=== PATIENT | female | born 1940 | race Caucasian/White ===

== ENCOUNTER 2020-07-03 07:54 | Outpatient (CLI) | payer MEDICARE, SELFPAY | END 2020-07-03 07:55 | disposition home or self-care (01) | LOC: ANHAUDIO 07:59 | DX: R42 Dizziness and giddiness (principal) | CPT/HCPCS: 92537; 92540; 92546; 92557; 92567 ==

== ENCOUNTER 2023-04-23 07:18 | Outpatient (CLI) | payer MEDICARE, SELFPAY ==
--- NOTE | ~2023-04-23 | CT_ITS ---
EXAMINATION: CTA abdomen DATE: 04/23/2023 08:10 INDICATION: Essential hypertension TECHNIQUE: Computed tomographic angiography (CTA) of the abdomen was performed with 100 mL Omnipaque- 350 intravenous contrast. Maximum intensity projection 3D-reconstructions of the aorta and other charles santo were constructed by the technologist on a separate workstation. The dose-length product (DLP) wa s 378.84 mGy-cm. Automated exposure control and iterative reconstruction technique were employed. COMPARISON: None. FINDINGS: The visualized lung bases are clear. The heart size is normal. The liver, spleen, pancreas, gallbladder, and adrenal glands are normal. The left kidney is unremarkable. There is a 10 mm cyst o f the right kidney upper pole. There are no pathologically enlarged abdominal lymph nodes. No free in traperitoneal gas or evidence of bowel obstruction. There are changes of fusion procedure at L4-5. Th ere is severe lumbar and lower thoracic spondylosis. A small fat-containing umbilical hernia is noted . No aneurysm or dissection of the aorta. There is calcified atherosclerosis at the origins of the kim ac axis and superior mesenteric artery without hemodynamically significant stenosis. The inferior mes enteric artery is unremarkable at its origin. There are single renal arteries. There is calcified ath erosclerosis with mild to moderate stenosis at the origin of the right renal artery. The left renal a rtery is normal at its origin. IMPRESSION: 1. Calcified atherosclerosis with mild to moderate stenosis at the origin of the right renal artery. Reviewed, dictated and finalized at location B. IMPRESSION: 1. Calcified atherosclerosis with mild to moderate stenosis at the origin of th e right renal artery.
[2023-04-23 07:55] LABS: Estimated Glomerular Filt Rate > 60
== END 2023-04-23 07:19 | disposition home or self-care (01) ==
PROVIDERS: PCP Internal Medicine; Visit Provider Internal Medicine Nephrology
DX: I10 Essential (primary) hypertension (principal); I73.9 Peripheral vascular disease, unspecified
CPT/HCPCS: 74175; Q9967

== ENCOUNTER 2025-05-30 12:30 | Outpatient (RCR) | payer MEDICARE, SELFPAY ==
--- NOTE | 2025-03-27 12:09 | PTOPEVAL1 ---
Assessment and note entered by Maya Snow, PT Evaluation Information Assessment Status Evaluation Diagnosis M25.511, M25.512 ICD-10 Condition Codes (PT) Pain in Thoracic Spine M54.6,Pain in right shoulder M25.511,Pain in left shoulder M25.512, Weakness R53.1 Onset years ago Subjective Information Pt reports both shoulders are gone, unable to raise arms up to the kitchen shelves because of pain and stiffness. The last 6 months, received some help at home for household tasks due to severely limited arm movement. Pt also states she notice more hunching/leaning forward when walking and wants to be able to get better posture . Reported Pain Level Pain Score 10: Self Report Assessment PT Clinical Summary Pt presents to therapy with c/o bilateral shoulder pain and severe limitation of functional ROM bilaterally. X-Rays last 03/08/2025 showed rotator cuff tear arthropathy with the proximal migration of the humeral heads at least a centimeter and a half, erosion through the acromion. Pt demos significant loss of bilateral shoulder ROM, weakness, instability and reports of pain with active movement. She also demos postural impairments with increased kyphosis and bilateral scapular protraction, shoulder subluxation. She will benefit from skilled PT for education to avoid further progression of shoulder damage, pain management, shoulder muscle strengthening (focus on intact surrounding muscles: deltoids, traps, rhomboids), scapular stabilization and postural correction in order to improve functional mobility , posture and safety. Plan of Care Interventions Electrical Stimulation,Hot Pack/Cold Pack,Manual Therapy,Neuro Re-education,Patient/Caregiver Education,Therapeutic Activities,Therapeutic Exercise,Ultrasound PT Services Indicated Yes Treatment Frequency and 1-2x/wk x 8 visits Duration These treatments will address the objective and functional deficits as defined above. The patient will be advanced safely and appropriately in order for the patient to progress towards his/her prior level of function. Additional exercises will be introduced and as well as a comprehensive home exercise program upon discharge, if needed, ?to ensure carryover of functional gains achieved in the clinic. This treatment plan has been reviewed and agreement upon by the patient.
--- NOTE | 2025-03-27 12:10 | OPREHPOC ---
Outpatient Therapy Plan of Care This is a Multidisciplinary Plan of Care that may contain components documented by all disciplines (PT, OT, and ST.) PT Problem 1 PT Problem #1 Knowledge Deficit PT Goal 1 Goal / Goal Update Pt will demo good understanding of POC and HEPs Target Visit 8 PT Problem 2 PT Problem #2 Pain PT Goal 1 Goal / Goal Update Pt will report a reduction of pain to 4-5/10 with active shoulder movements to tolerated ranges. Target Visit 8 PT Problem 3 PT Problem #3 Impaired Range of Motion PT Goal 1 Goal / Goal Update Pt will be able to improve shoulder motions to 20- 30 deg more to allow indep ADLs. Target Visit 6 PT Problem 4 PT Problem #4 Impaired Strength PT Goal 1 Goal / Goal Update Pt will improve shoulder muscle stability and endurance to allow 20 reps of shoulder flexion, abduction, rows with 1-2# resistance in order to allow improved safety in performing functional mobility. Target Visit 8
--- NOTE | 2025-04-16 14:56 | PCPTNOTE ---
Pt came 45 min early this scheduled visit. Pt decided not to wait for her treatment time because she had another appt to follow. Per front office. JAKE
--- NOTE | 2025-05-02 10:32 | PTOPEVAL1 ---
Assessment and note entered by Maya Snow, PT Re-Evaluation Information Assessment Status Evaluation Diagnosis M25.511, M25.512 ICD-10 Condition Codes (PT) Pain in right shoulder M25.511,Pain in left shoulder M25.512,Abnormalities of gait and mobility R26.9,Weakness R53.1 Onset years ago Subjective Information Pt reports pain level is down but still cant reach as high as she wants to. She notices she is able to move a little bit better compared to when she first started. Reports her kids come at her when she is walking without a cane or walker due to being wobbly. Reported Pain Level Pain Score 5: Self Report Assessment PT Clinical Summary Pt received a total of 8 treatment sessions for shoulder pain and demos good improvement in pain levels and ROM. Her QUICK DASH score improved from 43% indicating severe symptoms and significant limitations in performing tasks with the arm, shoulder, or hand to 27% indicating mild symptoms or that the person has the ability to perform daily activities without much difficulty. However, during the re-evaluation, pt perez increased postural sway with reaching tasks and increased unsteadiness with gait. She will benefit from further therapy to address remaining deficits and increase focus on balance and safety to reduce risk for falls and improve safety with household and community navigation. Plan of Care Interventions Electrical Stimulation,Hot Pack/Cold Pack,Manual Therapy,Neuro Re-education,Patient/Caregiver Education,Therapeutic Activities,Therapeutic Exercise,Ultrasound PT Services Indicated Yes Treatment Frequency and 1-2x/wk x 10 visits Duration These treatments will address the objective and functional deficits as defined above. The patient will be advanced safely and appropriately in order for the patient to progress towards his/her prior level of function. Additional exercises will be introduced and as well as a comprehensive home exercise program upon discharge, if needed, ?to ensure carryover of functional gains achieved in the clinic. This treatment plan has been reviewed and agreement upon by the patient.
--- NOTE | 2025-05-02 10:32 | OPREHPOC ---
Outpatient Therapy Plan of Care This is a Multidisciplinary Plan of Care that may contain components documented by all disciplines (PT, OT, and ST.) PT Problem 1 PT Problem #1 Knowledge Deficit PT Goal 1 Goal / Goal Update Pt will demo good understanding of POC and HEPs Target Visit 8 Progress Met PT Problem 2 PT Problem #2 Pain PT Goal 1 Goal / Goal Update Pt will report a reduction of pain to 4-5/10 with active shoulder movements to tolerated ranges. Target Visit 8 Progress Met PT Problem 3 PT Problem #3 Impaired Range of Motion PT Goal 1 Goal / Goal Update Pt will be able to improve shoulder motions to 20- 30 deg more to allow indep ADLs. -not met *updated goal (05/02/2025): Pt will be able to reach 1-2# weighted objects at eye level or above with improved stability and reduced compensatory patterns. Target Visit 6 PT Problem 4 PT Problem #4 Impaired Strength PT Goal 1 Goal / Goal Update Pt will improve shoulder muscle stability and endurance to allow 20 reps of shoulder flexion, abduction, rows with 1-2# resistance in order to allow improved safety in performing functional mobility. - pt able to perform 10 reps each. *cont to work on this goal with emphasis on increasing muscle endurance. *updated goal (05/02/2025) Pt will demo SLS x 20 seconds or more on each LE without LOB with at least 1 UE support to improve safety with dynamic standing tasks. Target Visit 8 Progress Partially Met PT Problem 5 PT Problem #5 Impaired Balance PT Goal 1 Goal / Goal Update Pt will demo a score of 19/24 or more on Dynamic Gait Index test to improve safety with community navigation. Target Visit 10
--- NOTE | 2025-05-14 14:45 | PCPTNOTE ---
Cancelled, ill. Per front office. AKS
--- NOTE | 2025-05-30 17:30 | PTOPDC ---
Assessment and note entered by Maya Snow, PT Evaluation Information Assessment Status Discharge Diagnosis M25.511, M25.512 ICD-10 Condition Codes (PT) Pain in right shoulder M25.511,Pain in left shoulder M25.512,Abnormalities of gait and mobility R26.9,Weakness R53.1 Onset years ago Subjective Information Pt reports that she notice and even her family also noticed that she is standing better and walking much better now. Pain to shoulders are still there, L > R; uses bilateral walking canes for support. Continues to require physical assistance from with reaching overhead tasks. Reported Pain Level Pain Score 2: Self Report Assessment PT Clinical Summary Pt received a total of 15 treatment sessions for BUE pain and balance. Showed excellent progress towards goals, demos improved strength and stability for BUEs, increased walking tolerance and improved dynamic balance and gait pattern using appropriate AD. She is agreeable to DC and reports compliance with HEPs. Skilled PT discontinued at this time. Plan of Care PT Services Indicated No
== END 2025-05-31 09:17 | disposition home or self-care (01) ==
LOC: ANHPT 12:30
PROVIDERS: PCP Internal Medicine; Visit Provider Orthopaedic Surgery
DX: M25.511 Pain in right shoulder (principal); M25.512 Pain in left shoulder
CPT/HCPCS: 97110; 97112; 97116; 97140; 97161; 97530; 97750